=== PATIENT | female | born 1960 | race Caucasian/White ===

== ENCOUNTER 2019-09-22 08:46 | Emergency (ER) | payer BC, OTHER ==
[~2019-09-22] VITALS: Ht 167.6 cm; Wt 56.7 kg
[~2019-09-22 08:46] MED LIST: PAXIL
[2019-09-22] MEDS ORDERED: SODIUM CHLORIDE 0.9% 1,000 ML IVB ONE (09:22)
[2019-09-22 09:31] LABS: Basophils # (auto) 0.1 10 ^3/uL (0-0.2); Eosinophils # (auto) 0.2 10 ^3/uL (0-0.8); Mean Corpuscular Hemoglobin 34.2 pg (28.0-32.0); Monocytes # (auto) 1.1 10 ^3/uL (0-1.3)
[2019-09-22 09:32] LABS: Basophils % (auto) 1.1 % (0.0-2.0); Eosinophils % (auto) 1.5 % (0.0-7.0); Hematocrit 34.3 % (36.0-46.0); Hemoglobin 11.7 g/dL (12.2-16.2); Lymphocytes # (auto) 2.1 10 ^3/uL (0.4-5.4); Lymphocytes % (auto) 19.1 % (10.0-50.0); Mean Corpuscular Hgb Conc. 34.2 g/dL (32.0-36.0); Mean Corpuscular Volume 100.1 fL (80.0-100.0); Monocytes % (auto) 9.8 % (0.0-12.0); Neutrophils # (auto) 7.4 10 ^3/uL (1.6-8.6); Neutrophils % (auto) 68.5 % (37.0-80.0); Nucleated Red Blood Cells % 0.1 %; Platelet Count (auto) 459 10^3/uL (140-450); Red Blood Cells 3.42 10^6/uL (4.0-5.20); White Blood Cell 10.8 10^3/uL (4.4-10.8)
[2019-09-22 09:40] LABS: Urine Bacteria FEW /hpf (None Seen); Urine Blood Negative /uL (Negative); Urine Specific Gravity 1.007 (1.001-1.035); Urine WBC 2 /hpf (0 - 5)
[2019-09-22 09:45] LABS: Chloride 101 mmol/L (98-107); Potassium 3.7 mmol/L (3.5-5.1); Sodium 134 mmol/L (136-145)
[2019-09-22 10:00] LABS: Alanine Aminotransferase 32 U/L (13-56); Albumin 2.9 g/dL (3.4-5.0); Alkaline Phosphatase 141 U/L (45-117); Anion Gap 7 (5-15); Aspartate Aminotransferase 30 U/L (15-37); BUN/Creatinine Ratio 5.7; Bilirubin, Total 0.8 mg/dL (0.2-1.0); Blood Urea Nitrogen 2 mg/dL (7-18); Calcium 9.1 mg/dL (8.5-10.1); Carbon Dioxide 26 mmol/L (21-32); GFR African American 243 mL/min; GFR Non-African American 201 mL/min; Glucose 110 mg/dL (74-106); Total Protein 6.9 g/dL (6.4-8.2)
[2019-09-22 10:22] LABS: INR 1.01 (0.9-1.15); Partial Thromboplastin Time 25.3 sec (23.64-32.05)
[2019-09-22 11:30] VITALS: BP 100/59
== END 2019-09-22 13:36 | disposition home or self-care (01) ==
LOC: ER 08:46 → EDBD 08:46 → ER 13:36
DX: R53.1 Weakness (principal); E03.9 Hypothyroidism, unspecified; R19.7 Diarrhea, unspecified; E46 Unspecified protein-calorie malnutrition; Z87.81 Personal history of (healed) traumatic fracture
CPT/HCPCS: 36415; 71045; 80053; 81001; 83735; 84443; 84484; 85025; 85610; 85730; 93005; 96360; 99285; J7030

== ENCOUNTER 2022-07-22 00:40 | Inpatient (IN) | payer MEDICARE, OTHER ==
[~2022-07-22] VITALS: Ht 160 cm; Wt 49.0 kg
[2022-07-22] MEDS ORDERED: MORPHINE SULFATE 4 MG/ML SYR/VIAL IM ONE (01:45)
[2022-07-22 01:55] LABS: Hematocrit 27.6 % (36.0-46.0); Mean Corpuscular Hemoglobin 27.7 pg (28.0-32.0); Mean Corpuscular Hgb Conc. 32.8 g/dL (32.0-36.0); Mean Corpuscular Volume 84.5 fL (80.0-100.0); Red Blood Cells 3.26 10^6/uL (4.0-5.20); Red Cell Distribution Width 15.6 % (11.8-14.3)
[2022-07-22 01:57] LABS: Basophils % (manual) 0 (0.0-2.0); Blast Cells 0; Eosinophils % (manual) 0 (0-7); Metamyelocytes % 0; Myelocytes % 0; Promyelocytes % 0; Reactive Lymphocytes 0; White Blood Cell 30.2 10^3/uL (4.4-10.8)
[2022-07-22 02:00] LABS: INR 0.98 (0.9-1.15)
[2022-07-22 02:15] LABS: Albumin 2.1 g/dL (3.4-5.0); BUN/Creatinine Ratio 30.6 (10.0-20.0); Calcium 8.6 mg/dL (8.5-10.1); Potassium 3.1 mmol/L (3.5-5.1)
[2022-07-22 02:17] LABS: Bilirubin, Total 0.2 mg/dL (0.2-1.0)
[2022-07-22 02:50] LABS: Band Neutrophils % (manual) 1; Lymphocytes % (manual) 8 (10.0-50.0); Monocytes % (manual) 6 (0-12)
[2022-07-22] MEDS ORDERED: MORPHINE SULFATE 4 MG/ML SYR/VIAL ONE (03:34)
[2022-07-22] MEDS ORDERED: MORPHINE SULFATE 4 MG/ML SYR/VIAL IV ONE (03:45)
[2022-07-22] MEDS ORDERED: NITROGLYCERIN 0.4 MG SL TAB SL PRN (06:45)
[2022-07-22] MEDS ORDERED: POTASSIUM CHL 20MEQ/100ML 100 ML IV ONE (06:45)
[2022-07-22] MEDS ORDERED: MORPHINE SULFATE 4 MG/ML SYR/VIAL IV PRN (06:45)
[2022-07-22] MEDS ORDERED: ALBUMIN 25% 100 ML IV ONE (06:45)
[2022-07-22] MEDS ORDERED: ACETAMINOPHEN 650 MG RECT SUPP PR PRN (06:45)
[2022-07-22] MEDS ORDERED: MORPHINE SULFATE INJ 2 MG/ml SYRG IV PRN (06:45)
[2022-07-22] MEDS ORDERED: VANCOMYCIN PER PHARMACY 0 MG IV SCH (07:00)
[2022-07-22] MEDS ORDERED: cefTRIAXone 1GM/50ML D5W 50 ML IV ONE (07:00)
[2022-07-22] MEDS: ONDANSETRON HCL 4 MG/2 ML VIAL IV PRN ×2 (07:37→17:33)
[2022-07-22] MEDS: SODIUM CHLORIDE 0.9% 1,000 ML IV SCH ×2 (07:38→23:39)
[2022-07-22] MEDS ORDERED: VANCOMYCIN 750mg/250ml 250 ML IV ONE (08:00)
[2022-07-22] MEDS ORDERED: VANCOMYCIN 1GM/250ML 250 ML IV ONE (09:15)
[2022-07-22 10:08] LABS: Urine Bacteria NONE SEEN /hpf (None Seen); Urine Blood Negative /uL (Negative); Urine Mucus FEW (None Seen); Urine Specific Gravity 1.021 (1.001-1.035); Urine WBC 1 /hpf (0 - 5)
[2022-07-22] MEDS: FAMOTIDINE (10MG/ML) 2ML VL IV SCH ×2 (11:10→21:42)
[2022-07-22] MEDS: HEPARIN SODIUM (PORCINE) 5000 UNITS/ML 1ML VIAL SC SCH ×2 (11:11→21:44)
[2022-07-22] MEDS ORDERED: TPN PER PHARMACY 0 ML IV SCH (13:30)
[2022-07-22 13:54] LABS: Phosphorus 2.1 mg/dL (2.5-4.90)
[2022-07-22] MEDS ORDERED: SODIUM PHOSPHATES 40 MEQ in D5W 5% 250 ML IV ONE (16:45)
[2022-07-22] MEDS ORDERED: POTASSIUM CHLORIDE 20 MEQ, LIDOCAINE 1% (LOCAL ANESTH.) 2 ML in SODIUM CHL 0.9% 100 ML IV ONE (17:15)
[2022-07-22] MEDS: HYDROmorphone HCL 2 MG/ML VL/or syr IV PRN (17:33)
[2022-07-22 18:52] VITALS: BP 106/68
[2022-07-22] MEDS ORDERED: DEXTROSE (50%) 50ML SYRG IV SCH (20:00)
[2022-07-22] MEDS: VANCOMYCIN 1GM/250ML 250 ML IV SCH (20:08)
[2022-07-22] MEDS: AMINO ACID INFUSION IN D10W 1,000 ML IV NR (21:14)
[2022-07-23] MEDS: ACCU-CHEK COMFORT CURVE STRIP VI SCH ×4 (00:13→18:37)
[2022-07-23] MEDS: HYDROmorphone HCL 2 MG/ML VL/or syr IV PRN ×4 (01:36→17:15)
[2022-07-23 02:30] VITALS: BP 92/55
[2022-07-23] MEDS: InsuLIN REG 1unit/0.01ml Soln (100units/ml) SC SCH ×4 (05:45→18:00)
[2022-07-23 06:42] LABS: Basophils # (auto) 0 10 ^3/uL (0-0.2); Eosinophils # (auto) 0 10 ^3/uL (0-0.8); Eosinophils % (auto) 0.2 % (0.0-7.0)
[2022-07-23 06:45] LABS: Basophils % (auto) 0.1 % (0.0-2.0); Hematocrit 23.2 % (36.0-46.0); Hemoglobin 7.6 g/dL (12.2-16.2); Lymphocytes # (auto) 0.5 10 ^3/uL (0.4-5.4); Lymphocytes % (auto) 3.4 % (10.0-50.0); Mean Corpuscular Hgb Conc. 32.9 g/dL (32.0-36.0); Mean Corpuscular Volume 85.2 fL (80.0-100.0); Monocytes # (auto) 0.8 10 ^3/uL (0-1.3); Monocytes % (auto) 5.4 % (0.0-12.0); Neutrophils % (auto) 90.9 % (37.0-80.0); Red Blood Cells 2.72 10^6/uL (4.0-5.20); Red Cell Distribution Width 15.9 % (11.8-14.3); White Blood Cell 15.4 10^3/uL (4.4-10.8)
[2022-07-23 07:05] LABS: Albumin 1.9 g/dL (3.4-5.0); Calcium 7.2 mg/dL (8.5-10.1); Magnesium 1.4 mg/dL (1.6-2.6)
[2022-07-23 07:10] LABS: BUN/Creatinine Ratio 16.3 (10.0-20.0); Bilirubin, Total 0.4 mg/dL (0.2-1.0)
[2022-07-23 08:36] LABS: Potassium 2.5 mmol/L (3.5-5.1)
[2022-07-23] MEDS: VANCOMYCIN 1GM/250ML 250 ML IV SCH ×2 (08:52→20:07)
[2022-07-23] MEDS: FAMOTIDINE (10MG/ML) 2ML VL IV SCH ×2 (08:53→21:29)
[2022-07-23] MEDS: cefTRIAXone 1GM/50ML D5W 50 ML IV SCH (08:53)
[2022-07-23 09:00] VITALS: BP 97/57
[2022-07-23] MEDS: HEPARIN SODIUM (PORCINE) 5000 UNITS/ML 1ML VIAL SC SCH ×2 (09:02→21:31)
[2022-07-23] MEDS ORDERED: POTASSIUM CHLORIDE 80 MEQ, LIDOCAINE 1% (LOCAL ANESTH.) 6 ML in SODIUM CHL 0.9% 500 ML IV ONE ×2 (10:00→12:00)
[2022-07-23 13:00] VITALS: BP 98/50
[2022-07-23] MEDS ORDERED: MAGNESIUM SULFATE 1GM/100ML 100 ML IV SCH (13:00)
[2022-07-23] MEDS: MAGNESIUM SULFATE 1GM/100ML 100 ML IV SCH ×2 (13:16→17:13)
[2022-07-23 17:00] VITALS: BP 84/50
[2022-07-23] MEDS: SODIUM CHLORIDE 0.9% 1,000 ML IV SCH (17:14)
[2022-07-23] MEDS ORDERED: POTASSIUM CHLORIDE 40 MEQ, LIDOCAINE 1% (LOCAL ANESTH.) 4 ML in SODIUM CHL 0.9% 250 ML IV ONE (20:00)
[2022-07-23] MEDS ORDERED: TPN PER PHARMACY IV NR ×9 (20:00)
[2022-07-23] MEDS ORDERED: SODIUM CHLORIDE 0.9% 1,000 ML IV SCH (20:00)
[2022-07-23] MEDS: AMINO ACID INFUSION IN D10W 1,000 ML IV NR (20:11)
[2022-07-23 22:00] VITALS: BP 110/57
[2022-07-24] MEDS: ACCU-CHEK COMFORT CURVE STRIP VI SCH ×4 (00:10→17:33)
[2022-07-24] MEDS: InsuLIN REG 1unit/0.01ml Soln (100units/ml) SC SCH ×4 (00:11→17:32)
[2022-07-24 05:00] VITALS: BP 125/70
[2022-07-24 06:22] LABS: Basophils # (auto) 0 10 ^3/uL (0-0.2); Basophils % (auto) 0.1 % (0.0-2.0); Eosinophils # (auto) 0 10 ^3/uL (0-0.8); Eosinophils % (auto) 0.1 % (0.0-7.0); Hematocrit 24.6 % (36.0-46.0); Lymphocytes # (auto) 0.4 10 ^3/uL (0.4-5.4); Red Blood Cells 2.88 10^6/uL (4.0-5.20)
[2022-07-24 06:25] LABS: Hemoglobin 8.1 g/dL (12.2-16.2); Lymphocytes % (auto) 2.5 % (10.0-50.0); Mean Corpuscular Hemoglobin 28.2 pg (28.0-32.0); Mean Corpuscular Hgb Conc. 32.9 g/dL (32.0-36.0); Mean Corpuscular Volume 85.5 fL (80.0-100.0); Monocytes # (auto) 0.9 10 ^3/uL (0-1.3); Monocytes % (auto) 5.3 % (0.0-12.0); Neutrophils # (auto) 16.3 10 ^3/uL (1.6-8.6); White Blood Cell 17.7 10^3/uL (4.4-10.8)
[2022-07-24 06:29] LABS: Potassium 3.6 mmol/L (3.5-5.1)
[2022-07-24 06:39] LABS: Albumin 1.9 g/dL (3.4-5.0); BUN/Creatinine Ratio 20.6 (10.0-20.0); Bilirubin, Total 0.2 mg/dL (0.2-1.0); Calcium 7.4 mg/dL (8.5-10.1); Magnesium 1.8 mg/dL (1.6-2.6); Phosphorus 1.7 mg/dL (2.5-4.90); Total Protein 4.5 g/dL (6.4-8.2)
[2022-07-24 09:00] VITALS: BP 129/65
[2022-07-24] MEDS: VANCOMYCIN 1GM/250ML 250 ML IV SCH (09:03)
[2022-07-24] MEDS: HYDROmorphone HCL 2 MG/ML VL/or syr IV PRN (09:18)
[2022-07-24] MEDS: ONDANSETRON HCL 4 MG/2 ML VIAL IV PRN (09:27)
[2022-07-24] MEDS: cefTRIAXone 1GM/50ML D5W 50 ML IV SCH (09:33)
[2022-07-24] MEDS: HEPARIN SODIUM (PORCINE) 5000 UNITS/ML 1ML VIAL SC SCH (09:39)
[2022-07-24] MEDS: FAMOTIDINE (10MG/ML) 2ML VL IV SCH (09:39)
[2022-07-24] MEDS ORDERED: POTASSIUM PHOSPHATE 22 MEQ in SODIUM CHL 0.9% 100 ML IV ONE (09:45)
[2022-07-24 13:00] VITALS: BP 136/70
[2022-07-24] MEDS ORDERED: SODIUM PHOSPHATES 20 MEQ in SODIUM CHL 0.9% 100 ML IV ONE (14:00)
[2022-07-24 17:00] VITALS: BP 125/71
[2022-07-24 17:54] VITALS: BP 125/71
[2022-07-24] MEDS ORDERED: TPN PER PHARMACY IV NR ×10 (20:00)
== END 2022-07-24 19:00 | disposition hospice, home (50) | DRG 535 ==
LOC: ER 00:40 → EDBD 00:40 → TELE 06:48 → TELE-CENTR 17:53
PROVIDERS: ADMIT Nurse Practitioner Family; ATTEND Internal Medicine
PROC: 06HN33Z Insertion of Infusion Device into Left Femoral Vein, Percutaneous Approach (ICD-10-PCS; principal; 2022-07-22)
DX: S72.001A Fracture of unspecified part of neck of right femur, initial encounter for closed fracture (principal); E43 Unspecified severe protein-calorie malnutrition; C34.90 Malignant neoplasm of unspecified part of unspecified bronchus or lung; E87.1 Hypo-osmolality and hyponatremia; Z68.1 Body mass index [BMI] 19.9 or less, adult; R65.10 Systemic inflammatory response syndrome (SIRS) of non-infectious origin without acute organ dysfunction; C00.9 Malignant neoplasm of lip, unspecified; C02.9 Malignant neoplasm of tongue, unspecified; D64.9 Anemia, unspecified; D75.839 Thrombocytosis, unspecified; E03.9 Hypothyroidism, unspecified; E83.42 Hypomagnesemia; Z20.822 Contact with and (suspected) exposure to COVID-19; E87.6 Hypokalemia; I45.10 Unspecified right bundle-branch block; W01.0XXA Fall on same level from slipping, tripping and stumbling without subsequent striking against object, initial encounter; Z80.0 Family history of malignant neoplasm of digestive organs; Z85.810 Personal history of malignant neoplasm of tongue; Z87.891 Personal history of nicotine dependence; Z92.3 Personal history of irradiation; Z93.1 Gastrostomy status; Z92.21 Personal history of antineoplastic chemotherapy; Y93.89 Activity, other specified; Y99.8 Other external cause status; Y92.098 Other place in other non-institutional residence as the place of occurrence of the external cause
CPT/HCPCS: 36415; 36556; 71045; 73502; 80053; 80202; 81001; 82962; 83605; 83735; 83880; 84100; 84443; 84478; 85007; 85025; 85027; 85610; 86850; 86900; 86901; 87426; 93005; 96365; 96366; 96368; 96372; 96375; 96376; G0378; J0696; J1815; J2001; J2405; J3480; J3490; J7060; J7131; P9047